=== PATIENT | female | born 1935 | race Caucasian/White ===

== ENCOUNTER 2019-01-16 15:24 | Emergency (ER) | payer SELFPAY ==
[~2019-01-16] VITALS: Ht 160 cm; Wt 49.3 kg
[~2019-01-16 15:24] MED LIST: AMLO-145 PO; ATOR10TA65 PO; BENA20TA4 PO; BUSP10TA2 PO; BUSP5TAB2 PO; FLUO20CA22 PO; HYDR12.58 PO
[2019-01-16 15:26] VITALS: BP 208/91; PULSE 71; RESP 16; Ht 160 cm; Wt 49.3 kg
== END 2019-01-16 18:18 | disposition left against medical advice (07) ==
LOC: E/R 15:24
DX: Z53.21 Procedure and treatment not carried out due to patient leaving prior to being seen by health care provider (principal)